=== PATIENT | male | born 1955 | race Caucasian/White ===

== ENCOUNTER → 2018-10-15 | Outpatient (CLI) | payer OTHER ==
[~2018-10-15] MED LIST: ASPIRIN CHILDRE80 MG PO; ASPIRIN81 MG PO; DOXYCYLINE50 MG PO; EC NAPROSYN500 MG PO; K-TAB10 MEQ PO; LISINOPRIL HCTZ1 TA1 PO; PLAVIX75 M1 PO; PRAVASTATIN SOD40 MG PO; SEPTRA DS 800 M1 TAB PO; TOPROL XL50 M1 PO; ZESTRIL10 MG PO
[2018-10-15 10:51] LABS: CREATININE 0.96 mg/dL (0.70-1.30)
== END | disposition home or self-care (01) ==
LOC: MRI 10:00 → LAB 10:00
PROVIDERS: Radiology Diagnostic Radiology
DX: H05.51 Retained (old) foreign body following penetrating wound of right orbit (principal); N36.8 Other specified disorders of urethra

== ENCOUNTER 2018-11-10 13:40 | Emergency (ER) | payer OTHER ==
[~2018-11-10] VITALS: Ht 177.8 cm; Wt 81.6 kg
[2018-11-10 13:43] VITALS: BP 115/77
[2018-11-10 14:13] LABS: BASO # 0.1 10*3/uL (0.0-0.1); BASO % 1.1 % (0.0-1.0); EOS # 0.3 10*3/uL (0.0-0.4); EOS % 3.4 % (1.0-4.0); HEMATOCRIT 42.2 % (42.0-52.0); HEMOGLOBIN 14.4 g/dl (14.0-18.0); LYMPH # 1.9 10*3/uL (1.3-4.4); LYMPH % 23.1 % (27.0-41.0); MEAN CELL VOLUME 94.4 fl (80.0-94.0); MEAN CORPUSCULAR HGB 32.2 pg (27.0-31.0); MEAN CORPUSCULAR HGB CONC 34.1 g/dl (33.0-37.0); MEAN PLATELET VOLUME 11.1 fl (9.6-12.3); MONO # 0.6 10*3/uL (0.1-1.0); MONO % 7.3 % (3.0-9.0); NEUT # 5.4 10*3/uL (2.3-7.9); NEUT % 64.7 % (47.0-73.0); PLATELET COUNT AUTOMATED 145 10*3/uL (130-400); RED BLOOD COUNT 4.47 10*6/uL (4.50-5.90); RED CELL DISTRI WIDTH 13.2 % (0-14.5); WHITE BLOOD COUNT 8.3 10*3/uL (4.8-10.8)
[2018-11-10 14:25] LABS: INTERNATIONAL NORM RATIO 0.9 (2.0-3.5)
[2018-11-10 14:31] LABS: ALKALINE PHOSPHATASE 94 U/L (45-117); BUN 13 mg/dl (7-24); CHLORIDE 103 mmol/L (98-107); CREATININE 0.99 mg/dL (0.70-1.30); POTASSIUM 4.2 mmol/L (3.5-5.1); SGOT/AST 18 IU/L (3-35); SGPT/ALT 19 U/L (12-78); SODIUM 137 mmol/L (136-145); TOTAL PROTEIN 7.5 gm/dL (6.4-8.2)
== END 2018-11-10 15:30 | disposition home or self-care (01) ==
LOC: ED 13:40
PROVIDERS: Nurse Practitioner Family
DX: M71.22 Synovial cyst of popliteal space [Baker], left knee (principal); F17.200 Nicotine dependence, unspecified, uncomplicated; Z98.890 Other specified postprocedural states; Z79.82 Long term (current) use of aspirin; Z79.899 Other long term (current) drug therapy; Z79.01 Long term (current) use of anticoagulants

== ENCOUNTER → 2020-06-16 | Outpatient (CLI) | payer OTHER ==
[2020-06-16 08:15] LABS: BASO # 0.1 10*3/uL (0.0-0.1); BASO % 1.1 % (0.0-1.0); EOS # 0.4 10*3/uL (0.0-0.4); EOS % 7.3 % (1.0-4.0); HEMATOCRIT 42.6 % (42.0-52.0); LYMPH # 1.5 10*3/uL (1.3-4.4); MEAN CELL VOLUME 96.6 fl (80.0-94.0); MEAN CORPUSCULAR HGB CONC 33.1 g/dl (33.0-37.0); MEAN PLATELET VOLUME 11.3 fl (9.6-12.3); MONO # 0.5 10*3/uL (0.1-1.0); MONO % 8.2 % (3.0-9.0); NEUT # 3.1 10*3/uL (2.3-7.9); PLATELET COUNT AUTOMATED 115 10*3/uL (130-400); RED BLOOD COUNT 4.41 10*6/uL (4.50-5.90); RED CELL DISTRI WIDTH 13.4 % (0-14.5); WHITE BLOOD COUNT 5.5 10*3/uL (4.8-10.8)
[2020-06-16 08:33] LABS: BUN 13 mg/dl (7-24); CHLORIDE 109 mmol/L (98-107); CHOLESTEROL 126 mg/dL (<200); CREATININE 0.82 mg/dL (0.70-1.30); HDL CHOLESTEROL 46 mg/dl (40-60); LDL CHOLESTEROL 66 mg/dL (9-159); POTASSIUM 3.8 mmol/L (3.5-5.1); SGOT/AST 19 IU/L (3-35); SGPT/ALT 22 U/L (12-78); SODIUM 139 mmol/L (136-145); TRIGLYCERIDES 69 mg/dl (<150); VLDL CHOLESTEROL 14 mg/dL (6-40)
== END | disposition home or self-care (01) ==
LOC: LAB 07:43
PROVIDERS: ATTEND Registered Nurse
DX: J44.9 Chronic obstructive pulmonary disease, unspecified (principal); I25.10 Atherosclerotic heart disease of native coronary artery without angina pectoris; R91.8 Other nonspecific abnormal finding of lung field; Z72.0 Tobacco use

== ENCOUNTER 2020-08-07 06:15 | Emergency (ER) | payer OTHER ==
[~2020-08-07] VITALS: Ht 177.8 cm; Wt 82.6 kg
[2020-08-07 07:05] LABS: BILIRUBIN Negative (Negative); BLOOD Trace-Intact (Negative); CLARITY Clear (Clear); COLOR Yellow (Yellow); GLUCOSE Negative (Negative); KETONE Negative (Negative); LEUKO ESTERASE Negative (Negative); NITRITE Negative (Negative); PH 6.5 (4.5-8.0); UROBILINOGEN 0.2 E.U./dl (0.0-1.0)
[2020-08-07 07:19] LABS: BACTERIA TRACE
[2020-08-07 07:48] VITALS: BP 132/76
== END 2020-08-07 07:57 | disposition home or self-care (01) ==
LOC: ED 06:15
PROVIDERS: Internal Medicine
DX: R33.9 Retention of urine, unspecified (principal); N32.0 Bladder-neck obstruction; Z79.899 Other long term (current) drug therapy

== ENCOUNTER 2020-08-14 08:11 | Emergency (ER) | payer OTHER ==
[~2020-08-14] VITALS: Ht 177.8 cm; Wt 79.4 kg
[2020-08-14 08:23] VITALS: BP 114/78
[2020-08-14 09:10] LABS: BILIRUBIN Negative (Negative); BLOOD 2+ (Negative); CLARITY Cloudy (Clear); COLOR Dark Yellow (Yellow); GLUCOSE Negative (Negative); KETONE Negative (Negative); LEUKO ESTERASE 2+ (Negative); NITRITE Negative (Negative); PH 6.5 (4.5-8.0); SPECIFIC GRAVITY 1.025 (1.001-1.030)
[2020-08-14 09:28] LABS: BACTERIA 2+; CALCIUM OXALATE CRYSTALS 2+; EPITHELIAL CELLS 21-30; MUCOUS 2+; RBC 31-40 rbc/hpf (0-2)
[2020-08-14 09:31] LABS: WBC TNTC wbc/hpf (0-5)
[2020-08-14 09:33] LABS: YEAST 2+
[2020-08-14] MEDS ORDERED: PYRIDIUM200 M1 PO (10:09)
== END 2020-08-14 10:20 | disposition home or self-care (01) ==
LOC: ED 08:11
PROVIDERS: Emergency Medicine
DX: N39.0 Urinary tract infection, site not specified (principal); F17.200 Nicotine dependence, unspecified, uncomplicated; Z79.82 Long term (current) use of aspirin; Z79.899 Other long term (current) drug therapy; Z95.5 Presence of coronary angioplasty implant and graft

== ENCOUNTER → 2020-08-24 | Outpatient (CLI) | payer OTHER ==
[~2020-08-24] MED LIST changes: +PYRIDIUM200 M1 PO
[2020-08-24 07:38] LABS: BILIRUBIN Negative (Negative); BLOOD Trace-Intact (Negative); CLARITY Clear (Clear); COLOR Dark Yellow (Yellow); GLUCOSE Negative (Negative); KETONE Trace (Negative); LEUKO ESTERASE 1+ (Negative); NITRITE Negative (Negative); PH 5.5 (4.5-8.0)
[2020-08-24 07:39] LABS: BASO # 0.1 10*3/uL (0.0-0.1); BASO % 1.2 % (0.0-1.0); EOS # 0.2 10*3/uL (0.0-0.4); EOS % 2.6 % (1.0-4.0); HEMATOCRIT 44.2 % (42.0-52.0); LYMPH # 1.9 10*3/uL (1.3-4.4); LYMPH % 23.5 % (27.0-41.0); MEAN CELL VOLUME 95.1 fl (80.0-94.0); MEAN CORPUSCULAR HGB 31.6 pg (27.0-31.0); MEAN CORPUSCULAR HGB CONC 33.3 g/dl (33.0-37.0); MEAN PLATELET VOLUME 10.5 fl (9.6-12.3); MONO # 0.5 10*3/uL (0.1-1.0); MONO % 5.7 % (3.0-9.0); NEUT # 5.3 10*3/uL (2.3-7.9); NEUT % 65.3 % (47.0-73.0); PLATELET COUNT AUTOMATED 248 10*3/uL (130-400); RED BLOOD COUNT 4.65 10*6/uL (4.50-5.90); RETICULOCYTE % 1.47 % (0.50-2.50); WHITE BLOOD COUNT 8.1 10*3/uL (4.8-10.8)
[2020-08-24 07:51] LABS: MUCOUS 1+
[2020-08-24 07:52] LABS: ALBUMIN 3.6 gm/dl (3.1-4.5); ALKALINE PHOSPHATASE 114 U/L (45-117); BUN 18 mg/dl (7-24); CHLORIDE 104 mmol/L (98-107); CHOLESTEROL 149 mg/dL (<200); CREATININE 1.21 mg/dL (0.70-1.30); GAMMA GLUTAMYL TRANSPEPTIDASE 56 U/L (15-85); IRON 255 ug/dL (65-175); LDL CHOLESTEROL 78 mg/dL (9-159); POTASSIUM 4.7 mmol/L (3.5-5.1); SGOT/AST 24 IU/L (3-35); SGPT/ALT 41 U/L (12-78); SODIUM 134 mmol/L (136-145); TOTAL IRON BINDING CAPACITY 288 ug/dl (250-450); TOTAL PROTEIN 7.9 gm/dL (6.4-8.2); TRIGLYCERIDES 192 mg/dl (<150)
[2020-08-24 09:53] LABS: FERRITIN 539.4 ng/mL (22.0-322.0); VITAMIN D, 25-HYDROXY 21.9 ng/mL (30-100)
== END | disposition home or self-care (01) ==
LOC: LAB 06:57 → US 07:30
PROVIDERS: ATTEND Family Medicine
DX: Z12.5 Encounter for screening for malignant neoplasm of prostate (principal); E78.5 Hyperlipidemia, unspecified; E55.9 Vitamin D deficiency, unspecified; R10.84 Generalized abdominal pain; R10.2 Pelvic and perineal pain; R79.89 Other specified abnormal findings of blood chemistry; R53.83 Other fatigue; R74.8 Abnormal levels of other serum enzymes

== ENCOUNTER → 2020-08-31 | Outpatient (CLI) | payer OTHER | END | disposition home or self-care (01) | LOC: CT 03:27 | PROVIDERS: ATTEND Family Medicine | DX: R10.84 Generalized abdominal pain (principal); R10.2 Pelvic and perineal pain; I25.10 Atherosclerotic heart disease of native coronary artery without angina pectoris ==

== ENCOUNTER → 2022-09-27 | Outpatient (CLI) | payer OTHER ==
[2022-09-27 08:42] LABS: BASO # 0.1 10*3/uL (0.0-0.1); EOS # 0.3 10*3/uL (0.0-0.4); EOS % 3.5 % (1.0-4.0); HEMATOCRIT 39.4 % (42.0-52.0); LYMPH # 1.4 10*3/uL (1.3-4.4); LYMPH % 16.8 % (27.0-41.0); MEAN CELL VOLUME 96.1 fl (80.0-94.0); MEAN CORPUSCULAR HGB 33.4 pg (27.0-31.0); MEAN CORPUSCULAR HGB CONC 34.8 g/dl (33.0-37.0); MEAN PLATELET VOLUME 10.3 fl (9.6-12.3); MONO # 0.7 10*3/uL (0.1-1.0); MONO % 8.6 % (3.0-9.0); NEUT # 5.7 10*3/uL (2.3-7.9); NEUT % 69.9 % (47.0-73.0); PLATELET COUNT AUTOMATED 169 10*3/uL (130-400); RED CELL DISTRI WIDTH 13.2 % (0-14.5); RETICULOCYTE % 1.36 % (0.50-2.50); WHITE BLOOD COUNT 8.1 10*3/uL (4.8-10.8)
[2022-09-27 08:44] LABS: BILIRUBIN Negative (Negative); BLOOD 2+ (Negative); CLARITY Clear (Clear); COLOR Yellow (Yellow); GLUCOSE Negative (Negative); KETONE Negative (Negative); LEUKO ESTERASE Negative (Negative); NITRITE Negative (Negative); PH 7.5 (4.5-8.0); SPECIFIC GRAVITY <= 1.005 (1.001-1.030); UROBILINOGEN 0.2 E.U./dl (0.0-1.0)
[2022-09-27 09:07] LABS: ALKALINE PHOSPHATASE 97 U/L (46-116); BUN 10 mg/dl (9-23); CHLORIDE 104 mmol/L (98-107); CHOLESTEROL 111 mg/dL (<200); GAMMA GLUTAMYL TRANSPEPTIDASE 29 U/L (0-73); LDL CHOLESTEROL 55 mg/dL (9-159); POTASSIUM 4.1 mmol/L (3.4-5.1); SGPT/ALT 10 U/L (10-49); T3 UPTAKE 23.9 % (22.4-36.7); THYROXINE (T4) TOTAL 6.6 ug/dl (4.5-10.9); TRIGLYCERIDES 69 mg/dl (<150)
[2022-09-27 09:12] LABS: EPITHELIAL CELLS 0-2; RBC 41-50 rbc/hpf (0-2); WBC 0-2 wbc/hpf (0-5)
[2022-09-27 09:50] LABS: VITAMIN D, 25-HYDROXY 25.6 ng/mL (30-100)
[2022-09-30 14:07] LABS: ANTI-DSDNA ANTIBODIES <1 IU/mL (0-9)
== END | disposition home or self-care (01) ==
LOC: LAB 07:58
PROVIDERS: ATTEND Family Medicine
DX: E78.5 Hyperlipidemia, unspecified (principal); R79.89 Other specified abnormal findings of blood chemistry; R53.83 Other fatigue; M25.50 Pain in unspecified joint; E55.9 Vitamin D deficiency, unspecified